=== PATIENT | male | born 1955 | race Caucasian/White ===

== ENCOUNTER 2022-11-09 07:59 | Outpatient (RCR) | payer MEDICARE ==
[~2022-11-09 07:59] MED LIST: ALLOPURINOL300 MG PO; ASPIRIN81 MG PO; ATENOLOL50 MG PO; ATORVASTATIN CA10 MG PO; BENICAR20 MG PO; CALAN SR180 MG PO; CHLORTHALIDONE25 MG PO; GLUCOSAMINE 1,1 EACH PO; MOVANTIK25 MG PO; MULTI-VITAMIN1 EACH PO; NAPROXEN250 MG PO; ULTRAM 50MG50 MG PO; VITAMIN C500 M4 PO
== END 2022-11-12 ==
LOC: PT 07:59
PROVIDERS: ATTEND Podiatrist Foot & Ankle Surgery
DX: M19.072 Primary osteoarthritis, left ankle and foot (principal)

== ENCOUNTER 2022-12-12 08:54 | Outpatient (RCR) | payer MEDICARE | END 2022-12-13 | LOC: PT 08:54 | PROVIDERS: ATTEND Podiatrist Foot & Ankle Surgery | DX: M19.072 Primary osteoarthritis, left ankle and foot (principal) ==